=== PATIENT | male | born 2000 | race Caucasian/White ===

== ENCOUNTER 2018-12-22 01:43 | Emergency (ER) | payer OTHER ==
[~2018-12-22] VITALS: Ht 190.5 cm; Wt 93.2 kg
[2018-12-22 01:43] VITALS: BP 136/64
[2018-12-22] MEDS ORDERED: ACETAMINOPHEN 500 MG TAB PO ONE (03:00)
--- NOTE | 2018-12-22 09:43 | REP ---
LEFT FOOT COMPLETE: 12/22/2018. Clinical history: Trauma. Findings: Four views are provided. There are no prior studies. Distal tibia, fibula, talus and calcaneus are without fracture or focal lesion. Talonavicular and calcaneocuboid joints without any acute findings. Tarsal bones, metatarsals and phalanges without fracture or focal lesion. Joints intact. Impression: 1. No visible or displaced fracture about the left foot. Electronically Signed by Dhiraj Hayes MD 12/22/2018 07:31 P
== END 2018-12-22 03:27 | disposition home or self-care (01) ==
LOC: M ED 01:43
DX: S90.32XA Contusion of left foot, initial encounter (principal); W50.0XXA Accidental hit or strike by another person, initial encounter

== ENCOUNTER → 2019-10-16 | Outpatient (CLI) | payer OTHER ==
--- NOTE | 2019-12-09 08:15 | SLEEPCENT ---
DATE: 10/16/2019 ORDERED: DANIA Martinez Nocturnal polysomnography was performed for evaluation of sleep physiology in this patient with a history of excessive somnolence and non-restorative sleep. Eight hours and 27 minutes of data were reviewed. There were 489 minutes of sleep identified. Sleep latency was short at 5.5 minutes. REM latency was normal at 79 minutes. Sleep architecture was good with four REM cycles of progressive lengths. Overall sleep efficiency was 97.3%. The patients electrocardiogram showed sinus bradycardia, average heart rate 42 beats per minutes. EEG showed reasonably normal waveforms for awake and sleep. There were only 17 respiratory events identified of ten seconds in duration or greater for an apnea hypopnea index of 2.1. The events were permanently obstructive and associated with REM sleep. Arousals from respiratory events when arousals from snoring were included occurred two times per hour. Significant snoring was seen over the course of the study. There were occasional limb movements noted. No significant oxygen desaturations below 90%. IMPRESSION: Normal nocturnal polysomnography with snoring. ckd /hts Manish ALEXANDER
== END ==
LOC: M SLEEP 20:00
PROVIDERS: ATTEND Nurse Practitioner Family
DX: R06.83 Snoring (principal)